=== PATIENT | female | born 1990 | race Caucasian/White ===

== ENCOUNTER 2017-09-01 10:43 | Emergency (ER) | payer BC, MEDICAID ==
[~2017-09-01] VITALS: Ht 157.5 cm; Wt 74.8 kg
[2017-09-01 13:15] VITALS: BP 122/84
[2017-09-01] MEDS ORDERED: ACETAMINOPHEN 325 MG TAB PO ONE ×2 (13:28→13:30)
== END 2017-09-01 13:43 | disposition home or self-care (01) ==
LOC: ER 10:47
DX: M54.2 Cervicalgia (principal); Z88.6 Allergy status to analgesic agent; Z88.2 Allergy status to sulfonamides; Z87.442 Personal history of urinary calculi; V43.52XA Car driver injured in collision with other type car in traffic accident, initial encounter; Y93.89 Activity, other specified; Y92.410 Unspecified street and highway as the place of occurrence of the external cause; Y99.9 Unspecified external cause status
CPT/HCPCS: 36415; 76805; 84702